=== PATIENT | female | born 1975 | race Caucasian/White ===

== ENCOUNTER 2017-05-27 12:11 | Emergency (ER) | payer OTHER ==
--- NOTE | ~2017-05-27 | CR172 ---
[facility] A Service of [facility] & [facility] [place] RADIOLOGY TEXT RESULTS PATIENT: SAMI JOLLY LOCATION: CFTX : 73 UNIT #: [id number] AGE: [address]: Armand Jang SEX: F ORDER DR: [id number] [facility] [address]. [place], [place] [address] [id number] E MR#: [id number] Acc #: [id number] NAME: SAMI JOLLY : 1975 SEX: F STUDY DATE/TIME: 05/27/2017 14:23 UNIT: [facility] ROOM: STUDY DESCRIPTION: CR Knee 3 Views Lt Ordering Physician: [facility] Primary Care Physician: Keshawn Lam Jr., M.D. MEDICAL IMAGING REPORT This report is preliminary unless electronic signature is present EXAM Left knee 3 views INDICATIONS Left knee pain since last night. COMPARISON STUDIES No comparisons. FINDINGS There may be a small knee joint effusion. There is no evidence for fracture or dislocation. Soft tissue structures are unremarkable. IMPRESSION Questionable small knee joint effusion. No acute fracture or dislocation. Dictated by... Bill Fernandez M.D. THIS IS AN ELECTRONICALLY VERIFIED REPORT Bill Fernandez M.D. at 06/01/2017 1:32 PM ARS/pcl TD: 05/27/2017 21:33 JOB #: [id number] MEDICAL IMAGING REPORT Page 1 of 1 COPY
== END 2017-05-27 15:20 | disposition home or self-care (01) ==
LOC: CED 12:11 → CFTX 12:11
DX: S83.92XA Sprain of unspecified site of left knee, initial encounter (principal); X58.XXXA Exposure to other specified factors, initial encounter; Y92.009 Unspecified place in unspecified non-institutional (private) residence as the place of occurrence of the external cause
CPT/HCPCS: 29530; 73562; 84703; 99283